=== PATIENT | male | born 1945 | race American Indian/Alaskan Native ===

== ENCOUNTER 2018-02-04 09:09 | Inpatient (IN) | payer MEDICARE ==
[2018-02-04 09:44] LABS: Basophils % (Auto) 0.3 % (0.0-1.8); Eosinophils # (Auto) 0.2 K/mm3 (0.0-0.4); Eosinophils % (Auto) 2.4 % (0.0-4.3); Hemoglobin 12.6 gm/dl (11.8-15.2); Lymphocytes # (Auto) 2.2 K/mm3 (1.2-5.4); Lymphocytes % (Auto) 21.8 % (13.4-35.0); Mean Corpuscular HGB Conc 33 % (32-34); Mean Corpuscular Hemoglobin 29 pg (28-32); Mean Corpuscular Volume 88 fl (84-94); Monocytes % (Auto) 9.9 % (0.0-7.3); Platelet Count 218 K/mm3 (140-440); Red Cell Distribution Width 14.2 % (13.2-15.2)
[2018-02-04 09:54] LABS: Albumin 3.8 g/dL (3.9-5); Calcium 9.5 mg/dL (8.4-10.2)
[2018-02-04 10:11] LABS: Bacteria,Urine 1+ /HPF (Negative); Bilirubin,Urine NEG (Negative); Blood,Urine NEG (Negative); Color,Urine Yellow (Yellow); Hyaline Casts,Urine 1 /LPF; Urobilinogen,Urine < 2.0 mg/dL (<2.0)
[2018-02-04] MEDS ORDERED: NORCO 5/325 PO ONE (11:44)
[2018-02-04] MEDS ORDERED: ZOFRAN ODT PO ONE (11:44)
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
--- NOTE | 2018-02-04 14:33 | Ultrasound Report ---
FINAL REPORT PROCEDURE: US ABDOMEN, complete TECHNIQUE: Real-time sonography in multiple planes of the abdomen was performed with image documentation. HISTORY: ruq, epigastric pain COMPARISON: No prior studies are available for comparison. FINDINGS: Liver: There is underlying increased echogenicity, compatible with fatty infiltration. There is a solid mass in the right hepatic lobe which measures 9.2 x 7.5 x 7.9 centimeters. Gallbladder: Fluid filled. No gallstones, wall thickening, pericholecystic fluid, or sonographic Berrios's sign. Intrahepatic bile ducts: Normal caliber . Extrahepatic bile ducts: Common bile duct measures 3 millimeters in caliber. Pancreas: Nonspecific increased echogenicity. Aorta: Visualized portions appear normal. IVC: Visualized portions appear normal. RIGHT kidney: Normal echotexture. No hydronephrosis. No focal lesions. Length: 12.4cm. LEFT kidney: Normal echotexture. There are 2 simple appearing cysts in the left kidney, measuring up to 5.8 centimeters. No hydronephrosis. Length: 15.1cm. Spleen: Normal size and echotexture. No focal lesions. Intraperitoneal fluid: None . Other: None . IMPRESSION: Solid mass in the right hepatic lobe, measuring up to 9.2 centimeters. Recommend follow-up/further evaluation to exclude malignancy. Findings were discussed by telephone with Dr. Waddell at 1:25 p.m. central standard time on 02/04/2018
--- NOTE | 2018-02-04 14:58 | History and Physical Report ---
History of Present Illness Chief complaint: Abdominal pain History of present illness: 72 YO Male with DM, HTN, CKD presents to ED for evaluation. Pt states that he has experienced abdominal pain for epast 5 days with worsening symptoms over the same time frame. Pt states that pain is 5-8/10, intermittent, sharp, worse with movement and palpation, radiates all over his abdomen. Pt denies fever, chills, CP, Palpitations, NVD, BRBPR, Melena, Hemoptysis, Unintentional weight loss, night sweats, productive cough, skin rash, or recent ill contacts. Pt seen and evaluated in ED and found to have a liver mass on Ultrasound. CT abdomen ordered but not completed due to patient creatnine of 1.5. Pt admitted to medical floor. Past History Past Medical History: diabetes, hypertension, renal failure Past Surgical History: bowel surgery Social history: , lives with family. denies: smoking, alcohol abuse, prescription drug abuse Family history: diabetes, hypertension Medications and Allergies Allergies Allergy/AdvReac Type Severity Reaction Status Date / Time lisinopril Allergy Swelling Verified 02/04/18 09:16 Home Medications Medication Instructions Recorded Confirmed Last Taken Type Allopurinol [Zyloprim] 300 mg PO QDAY 02/04/18 02/04/18 02/04/18 History Cholecalciferol (Vitamin D3) 2,000 unit PO QDAY 02/04/18 02/04/18 02/04/18 History [Vitamin D3 2,000 unit] Furosemide [Lasix TAB] 40 mg PO QDAY 02/04/18 02/04/18 02/04/18 History Metformin HCl [Glucophage] 1,000 mg PO BID 02/04/18 02/04/18 02/04/18 History Metoprolol Tartrate 50 mg PO DAILY 02/04/18 02/04/18 02/04/18 History NIFEdipine [Nifedipine ER] 30 mg PO DAILY 02/04/18 02/04/18 02/04/18 History hydrALAZINE [Apresoline TAB] 100 mg PO BID 02/04/18 02/04/18 02/04/18 History Review of Systems Constitutional: no weight loss, no chills Ears, nose, mouth and throat: no ear pain, no ear discharge, no tinnitis, no decreased hearing, no nose pain Cardiovascular: no chest pain, no orthopnea, no palpitations, no rapid/ irregular heart beat, no edema Respiratory: no cough, no cough with sputum, no excessive sputum, no hemoptysis Gastrointestinal: abdominal pain, no nausea, no vomiting, no diarrhea, no constipation, no BRBPR, no melena, no hematochezia Genitourinary Male: no dysuria, no hematuria, no flank pain, no discharge, no urinary frequency, no urinary hesitancy Rectal: no pain, no incontinence, no bleeding Musculoskeletal: no neck stiffness, no neck pain, no shooting arm pain, no arm numbness/tingling, no low back pain, no shooting leg pain, no leg numbness/ tingling Integumentary: no rash, no pruritis, no redness, no sores, no wounds, no boils Neurological: no transient paralysis, no paralysis, no weakness, no parathesias , no numbness, no tingling, no seizures, no syncope, no tremors Psychiatric: no anxiety, no memory loss, no change in sleep habits, no sleep disturbances, no hypersomnia, no change in appetite Endocrine: no cold intolerance, no heat intolerance, no polyphagia, no excessive thirst, no polydipsia, no polyuria, no nocturia, no excessive sweating , no flushing Hematologic/Lymphatic: no easy bruising, no easy bleeding, no lymphadenopathy Allergic/Immunologic: no urticaria, no allergic rhinitis, no wheezing, no persistent infections, no anaphylaxis Exam - Constitutional Vitals: Temp Pulse Resp BP Pulse Ox 98 F 64 18 139/80 94 02/04/18 11:37 02/04/18 11:37 02/04/18 11:37 02/04/18 14:00 02/04/18 14:08 General appearance: Present: obese - EENT Eyes: Present: PERRL ENT: hearing intact, clear oral mucosa - Neck Neck: Present: supple, normal ROM - Respiratory Respiratory effort: normal Respiratory: bilateral: CTA - Cardiovascular Heart Sounds: Present: S1 & S2. Absent: rub, click - Extremities Extremities: pulses symmetrical, No edema Peripheral Pulses: within normal limits - Abdominal General gastrointestinal: Present: soft, non-tender, non-distended, normal bowel sounds Male genitourinary: Present: normal - Integumentary Integumentary: Present: clear, warm, dry - Musculoskeletal Musculoskeletal: gait normal, strength equal bilaterally - Psychiatric Psychiatric: appropriate mood/affect, intact judgment & insight - Neurologic Neurologic: CNII-XII intact, moves all extremities Results - Labs CBC & Chem 7: 02/04/18 09:26 02/04/18 09:26 Labs: Abnormal lab results 02/04/18 02/04/18 Range/Units 09:26 09:26 [place] % (Auto) 9.9 H (0.0-7.3) % [place] # 1.0 H (0.0-0.8) K/mm3 Sodium 136 L (137-145) mmol/L Chloride 94.0 L (98-107) mmol/L Glucose 181 H (75-100) mg/dL Albumin 3.8 L (3.9-5) g/dL Assessment and Plan - Patient Problems (1) Liver mass Current Visit: Yes Status: Acute Plan to address problem: Serial abdominal exam, Ultrasound abdomen due to serum creatnine of 1.5 and CKD , Pending MR of the abdomen. Pain control (2) HTN (hypertension) Current Visit: Yes Status: Acute Qualifiers: Hypertension type: essential hypertension Qualified Code(s): I10 - Essential (primary) hypertension Plan to address problem: monitor bp q shift, resume prehospital medication, (3) Diabetes Current Visit: Yes Status: Acute Plan to address problem: Consistent carbohydrate diet, insulin, accu check (4) Renal insufficiency Current Visit: Yes Status: Acute Plan to address problem: IVF resuscitation, monitor uop q shift, avoid nephrotoxic agents (5) DVT prophylaxis Current Visit: Yes Status: Acute
[2018-02-04] MEDS ORDERED: ZOFRAN IV PRN (15:00)
[2018-02-04] MEDS ORDERED: TYLENOL PO PRN (15:00)
[2018-02-04] MEDS ORDERED: SODIUM CHLORIDE FLUSH SYRINGE 10 ML IV PRN (15:00)
[2018-02-04] MEDS: SODIUM CHLORIDE FLUSH SYRINGE 10 ML IV SCH (22:27)
[2018-02-05] MEDS: SODIUM CHLORIDE FLUSH SYRINGE 10 ML IV SCH ×2 (10:00→22:39)
--- NOTE | 2018-02-05 13:46 | Progress Note ---
Assessment and Plan Assessment and plan: Liver mass seen on Ultrasound Abdomen. MRI ordered , but patient cannot fit in machine because of body habitus. Consult Oncology Diabetes mellitus type 2. Fingerstick q ac and hs. Resume Metformin Hypertension. Resume Metoprolol, Hydralazine and Nifedipinele on Coreg. Will moniyor DVT prophylaxis. SCDs only. No anticoagulation because liver mass that may bleed. Full code status History Interval history: Pain right upper abdomen, no fever Hospitalist Physical - Physical exam Narrative exam: General:Not in acute distress, lying in bed, morbidly obese HEENT:Normocephalic, atraumatic Neck:supple,no JVD Lungs:Clear to auscultation, no rales , no wheeze Heart:S1 and S2 regular, no murmurs, rubs or gallop Abd: soft, Tender RUQ, no rebound tenderness, non distended, normal bowel sounds Ext:no edema, no clubbing or cyanosis Neuro:Awake,alert,oriented x 3, moves all extremities, Psych:normal mood - Constitutional Vitals: Temp Pulse Resp BP Pulse Ox 98.2 F 64 22 164/88 91 02/05/18 11:50 02/05/18 11:50 02/05/18 11:50 02/05/18 11:50 02/05/18 11:50 Results - Labs CBC & Chem 7: 02/04/18 09:26 02/04/18 09:26 Labs: Laboratory Last Values WBC 10.1 K/mm3 (4.5-11.0) 02/04/18 09:26 RBC 4.30 M/mm3 (3.65-5.03) 02/04/18 09:26 Hgb 12.6 gm/dl (11.8-15.2) 02/04/18 09:26 Hct 38.0 % (35.5-45.6) 02/04/18 09:26 MCV 88 fl (84-94) 02/04/18 09:26 MCH 29 pg (28-32) 02/04/18 09:26 MCHC 33 % (32-34) 02/04/18 09:26 RDW 14.2 % (13.2-15.2) 02/04/18 09:26 Plt Count 218 K/mm3 (140-440) 02/04/18 09:26 Lymph % (Auto) 21.8 % (13.4-35.0) 02/04/18 09:26 [place] % (Auto) 9.9 % (0.0-7.3) H 02/04/18 09:26 Eos % (Auto) 2.4 % (0.0-4.3) 02/04/18 09:26 Baso % (Auto) 0.3 % (0.0-1.8) 02/04/18 09:26 Lymph # 2.2 K/mm3 (1.2-5.4) 02/04/18 09:26 [place] # 1.0 K/mm3 (0.0-0.8) H 02/04/18 09:26 Eos # 0.2 K/mm3 (0.0-0.4) 02/04/18 09: Baso # 0.0 K/mm3 (0.0-0.1) 02/04/18 09:26 Seg Neutrophils % 65.6 % (40.0-70.0) 02/04/18 09:26 Seg Neutrophils # 6.6 K/mm3 (1.8-7.7) 02/04/18 09:26 Sodium 136 mmol/L (137-145) L 02/04/18 09:26 Potassium 4.4 mmol/L (3.6-5.0) 02/04/18 09:26 Chloride 94.0 mmol/L (98-107) L 02/04/18 09:26 Carbon Dioxide 27 mmol/L (22-30) 02/04/18 09:26 Anion Gap 19 mmol/L 02/04/18 09:26 BUN 19 mg/dL (9-20) 02/04/18 09:26 Creatinine 1.5 mg/dL (0.8-1.5) 02/04/18 09:26 Estimated GFR 56 ml/min 02/04/18 09:26 BUN/Creatinine Ratio 13 % 02/04/18 09:26 Glucose 181 mg/dL (75-100) H 02/04/18 09:26 POC Glucose 157 (70-105) H 02/05/18 11:56 Calcium 9.5 mg/dL (8.4-10.2) 02/04/18 09:26 Total Bilirubin 0.40 mg/dL (0.1-1.2) 04/25/18 09:26 AST 39 units/L (5-40) 02/04/18 09:26 ALT 47 units/L (7-56) 02/04/18 09:26 Alkaline Phosphatase 101 units/L (35-129) 02/04/18 09:26 Total Protein 7.1 g/dL (6.3-8.2) 02/04/18 09:26 Albumin 3.8 g/dL (3.9-5) L 02/04/18 09:26 Albumin/Globulin Ratio 1.2 % 02/04/18 09:26 Lipase 33 units/L (13-60) 02/04/18 09:26 Urine Color Yellow (Yellow) 02/04/18 Unknown Urine Turbidity Clear (Clear) 02/04/18 Unknown Urine pH 5.0 (5.0-7.0) 02/04/18 Unknown Ur Specific [place] 1.019 (1.003-1.030) 02/04/18 Unknown Urine Protein 100 mg/dl mg/dL (Negative) 02/04/18 Unknown Urine Glucose (UA) 50 mg/dL (Negative) 02/04/18 Unknown Urine Ketones Neg mg/dL (Negative) 02/04/18 Unknown Urine Blood Neg (Negative) 02/04/18 Unknown Urine Nitrite Neg (Negative) 02/04/18 Unknown Urine Bilirubin Neg (Negative) 02/04/18 Unknown Urine Urobilinogen < 2.0 mg/dL (<2.0) 02/04/18 Unknown Ur Leukocyte Esterase Neg (Negative) 02/04/18 Unknown Urine WBC (Auto) 1.0 /HPF (0.0-6.0) 02/04/18 Unknown Urine RBC (Auto) 3.0 /HPF (0.0-6.0) 02/04/18 Unknown U Epithel Cells (Auto) < 1.0 /HPF (0-13.0) 02/04/18 Unknown Urine Bacteria (Auto) 1+ /HPF (Negative) 02/04/18 Unknown Hyaline Casts 1 /LPF 02/04/18 Unknown
[2018-02-05] MEDS ORDERED: NACL 0.9% 1000 ML 1,000 ML IV SCH (17:00)
--- NOTE | 2018-02-05 19:21 | Consultation ---
History of Present Illness - Reason for Consult Consult date: 02/05/18 Liver mass lesion. Requesting physician: JESUS HANNAH - History of Present Illness Thank you for this consult, patient seen, records reviewed, Kindly asked to see for the reason above..As per his account , no previous hx of this lesion.no contributing factors.MRI unable due to body mass.Please see orders/ for w/up, and recommendations. Past History Past Medical History: diabetes, hypertension, renal failure Past Surgical History: bowel surgery Social history: , lives with family. denies: smoking, alcohol abuse, prescription drug abuse Family history: diabetes, hypertension Medications and Allergies Allergies Allergy/AdvReac Type Severity Reaction Status Date / Time lisinopril Allergy Swelling Verified 02/04/18 09:16 Home Medications Medication Instructions Recorded Confirmed Last Taken Type Allopurinol [Zyloprim] 300 mg PO QDAY 02/04/18 02/04/18 02/04/18 History Cholecalciferol (Vitamin D3) 2,000 unit PO QDAY 02/04/18 02/04/18 02/04/18 History [Vitamin D3 2,000 unit] Furosemide [Lasix TAB] 40 mg PO QDAY 02/04/18 02/04/18 02/04/18 History Metformin HCl [Glucophage] 1,000 mg PO BID 02/04/18 02/04/18 02/04/18 History Metoprolol Tartrate 50 mg PO DAILY 02/04/18 02/04/18 02/04/18 History NIFEdipine [Nifedipine ER] 30 mg PO DAILY 02/04/18 02/04/18 02/04/18 History hydrALAZINE [Apresoline TAB] 100 mg PO BID 02/04/18 02/04/18 02/04/18 History Active Meds: Active Medications Acetaminophen (Tylenol) 650 mg PO Q4H PRN PRN Reason: Pain MILD(1-3)/Fever >100.5/SPENCE Sodium Chloride (Nacl 0.9% 1000 Ml) 1,000 mls @ 75 mls/hr IV DIRECT LAKISHA Ondansetron HCl (Zofran) 4 mg IV Q8H PRN PRN Reason: Nausea And Vomiting Sodium Chloride (Sodium Chloride Flush Syringe 10 Ml) 10 ml IV BID LAKISHA Last Admin: 02/05/18 10:00 Dose: 10 ml Sodium Chloride (Sodium Chloride Flush Syringe 10 Ml) 10 ml IV PRN PRN PRN Reason: LINE FLUSH Exam - Constitutional Vitals: Temp Pulse Resp BP Pulse Ox 98.2 F 61 22 164/88 94 02/05/18 11:50 02/05/18 16:42 02/05/18 11:50 02/05/18 11:50 02/05/18 16:42 General appearance: Present: no acute distress, well-nourished - EENT Eyes: Present: PERRL ENT: hearing intact, clear oral mucosa - Neck Neck: Present: supple, normal ROM - Respiratory Respiratory effort: normal Respiratory: bilateral: CTA - Cardiovascular Heart Sounds: Present: S1 & S2. Absent: rub, click - Extremities Extremities: pulses symmetrical, No edema Peripheral Pulses: within normal limits - Abdominal General gastrointestinal: Present: soft, non-tender, non-distended, normal bowel sounds Male genitourinary: Present: deferred - Rectal Rectal Exam: deferred - Integumentary Integumentary: Present: clear, warm, dry - Musculoskeletal Musculoskeletal: gait normal, strength equal bilaterally - Psychiatric Psychiatric: appropriate mood/affect, intact judgment & insight - Neurologic Neurologic: CNII-XII intact, moves all extremities Results - Labs CBC & Chem 7: 02/04/18 09:26 02/04/18 09:26 Labs: Abnormal lab results 02/04/18 02/05/18 02/05/18 Range/Units 21:14 05:56 11:56 POC Glucose 170 H 187 H 157 H (70-105) 02/05/18 Range/Units 16:48 POC Glucose 124 H (70-105) Assessment and Plan - Patient Problems (1) Liver mass Current Visit: Yes Status: Acute Plan to address problem: see work up. (2) RUQ pain Current Visit: Yes Status: Acute Plan to address problem: due to mass effect. control pain.
[2018-02-05 21:20] LABS: INR 0.93 (0.87-1.13)
[2018-02-05 21:21] LABS: Partial Thromboplastin Time 35.1 Sec. (24.2-36.6)
[2018-02-05] MEDS ORDERED: NON-FORMULARY (Metformin Hcl [Glucophage] 1,000 MG) PO SCH (22:00)
[2018-02-05] MEDS: APRESOLINE PO SCH (22:40)
[2018-02-06] MEDS: GLUCOPHAGE PO SCH ×3 (09:12→18:05)
--- NOTE | 2018-02-06 10:29 | Progress Note ---
Hospitalist Physical - Constitutional Vitals: Temp Pulse Resp BP Pulse Ox 98.3 F 62 22 142/86 96 02/06/18 07:31 02/06/18 07:31 02/06/18 07:31 02/05/18 19:43 02/06/18 07:31 General appearance: Present: no acute distress, well-nourished Results - Labs CBC & Chem 7: 02/04/18 09:26 02/04/18 09:26 Labs: Laboratory Last Values WBC 10.1 K/mm3 (4.5-11.0) 02/04/18 09: RBC 4.30 M/mm3 (3.65-5.03) 02/04/18 09:26 Hgb 12.6 gm/dl (11.8-15.2) 02/04/18 09: Hct 38.0 % (35.5-45.6) 02/04/18 09:26 MCV 88 fl (84-94) 02/04/18 09: MCH 29 pg (28-32) 02/04/18 09: MCHC 33 % (32-34) 02/04/18 09:26 RDW 14.2 % (13.2-15.2) 02/04/18 09:26 Plt Count 218 K/mm3 (140-440) 02/04/18 09:26 Lymph % (Auto) 21.8 % (13.4-35.0) 02/04/18 09:26 [place] % (Auto) 9.9 % (0.0-7.3) H 02/04/18 09: Eos % (Auto) 2.4 % (0.0-4.3) 02/04/18 09:26 Baso % (Auto) 0.3 % (0.0-1.8) 02/04/18 09:26 Lymph # 2.2 K/mm3 (1.2-5.4) 02/04/18 09: [place] # 1.0 K/mm3 (0.0-0.8) H 02/04/18 09:26 Eos # 0.2 K/mm3 (0.0-0.4) 02/04/18 09:26 Baso # 0.0 K/mm3 (0.0-0.1) 02/04/18 09:26 Seg Neutrophils % 65.6 % (40.0-70.0) 02/04/18 09:26 Seg Neutrophils # 6.6 K/mm3 (1.8-7.7) 02/04/18 09:26 PT 12.9 Sec. (12.2-14.9) 02/05/18 20:20 INR 0.93 (0.87-1.13) 02/05/18 20:20 APTT 35.1 Sec. (24.2-36.6) 02/05/18 20:20 Sodium 136 mmol/L (137-145) L 02/04/18 09:26 Potassium 4.4 mmol/L (3.6-5.0) 02/04/18 09:26 Chloride 94.0 mmol/L (98-107) L 02/04/18 09:26 Carbon Dioxide 27 mmol/L (22-30) 02/04/18 09:26 Anion Gap 19 mmol/L 02/04/18 09:26 BUN 19 mg/dL (9-20) 02/04/18 09:26 Creatinine 1.5 mg/dL (0.8-1.5) 02/04/18 09:26 Estimated GFR 56 ml/min 02/04/18 09:26 BUN/Creatinine Ratio 13 % 02/04/18 09:26 Glucose 181 mg/dL (75-100) H 02/04/18 09:26 POC Glucose 196 (70-105) H 02/06/18 06:25 Calcium 9.5 mg/dL (8.4-10.2) 02/04/18 09:26 Total Bilirubin 0.40 mg/dL (0.1-1.2) 02/04/18 09:26 AST 39 units/L (5-40) 02/04/18 09:26 ALT 47 units/L (7-56) 02/04/18 09:26 Alkaline Phosphatase 101 units/L (35-129) 02/04/18 09:26 Lactate Dehydrogenase 239 units/L (91-180) H 02/05/18 20:20 Total Protein 7.1 g/dL (6.3-8.2) 02/04/18 09:26 Albumin 3.9 g/dL (3.9-5) 02/05/18 20:20 Albumin/Globulin Ratio 1.2 % 02/04/18 09:26 Lipase 33 units/L (13-60) 02/04/18 09:26 Urine Color Yellow (Yellow) 02/04/18 Unknown Urine Turbidity Clear (Clear) 02/04/18 Unknown Urine pH 5.0 (5.0-7.0) 02/04/18 Unknown Ur Specific [place] 1.019 (1.003-1.030) 02/04/18 Unknown Urine Protein 100 mg/dl mg/dL (Negative) 02/04/18 Unknown Urine Glucose (UA) 50 mg/dL (Negative) 02/04/18 Unknown Urine Ketones Neg mg/dL (Negative) 02/04/18 Unknown Urine Blood Neg (Negative) 02/04/18 Unknown Urine Nitrite Neg (Negative) 02/04/18 Unknown Urine Bilirubin Neg (Negative) 02/04/18 Unknown Urine Urobilinogen < 2.0 mg/dL (<2.0) 02/04/18 Unknown Ur Leukocyte Esterase Neg (Negative) 02/04/18 Unknown Urine WBC (Auto) 1.0 /HPF (0.0-6.0) 02/04/18 Unknown Urine RBC (Auto) 3.0 /HPF (0.0-6.0) 02/04/18 Unknown U Epithel Cells (Auto) < 1.0 /HPF (0-13.0) 02/04/18 Unknown Urine Bacteria (Auto) 1+ /HPF (Negative) 02/04/18 Unknown Hyaline Casts 1 /LPF 02/04/18 Unknown Hepatitis C Antibody Non-reactive (NonReactive) 02/05/18 20:20
[2018-02-06 10:44] LABS: BUN/Creatinine Ratio 13; Blood Urea Nitrogen 17 mg/dL (9-20); Calcium 9.1 mg/dL (8.4-10.2); Hemolysis Index 2
[2018-02-06] MEDS: LOPRESSOR PO SCH (10:45)
[2018-02-06] MEDS: VITAMIN D3 PO SCH (10:45)
[2018-02-06] MEDS: LASIX PO SCH (10:46)
[2018-02-06] MEDS: ZYLOPRIM PO SCH (10:47)
[2018-02-06] MEDS: APRESOLINE PO SCH ×2 (10:47→22:51)
[2018-02-06] MEDS: PROCARDIA XL PO SCH (10:47)
[2018-02-06] MEDS: SODIUM CHLORIDE FLUSH SYRINGE 10 ML IV SCH ×2 (10:48→22:50)
--- NOTE | 2018-02-06 11:13 | Event Note ---
Date: 02/06/18 72 year old male with liver mass. Prior to any liver biopsy patient needs to have reevaluation of Creatinine to determine if contrast enhanced liver CT can be performed. If lower, recommend [address] scan. Patient unable to have MRI due to morbid obesity. Patient needs full hepatitis panel and AFP to return prior to any liver biopsy to assess potential of malignancy. If potential high based on hepatitis panel and AFP, then usually liver biopsy avoided and would recommend open MRI with contrast which can usually define any primary hepatic malignant process without the chance of seeding. Biopsy can result in patient not being transplantable due to the fear of seeding at many transplant organizations (including [facility]). Given decline in creatinine, recommend 3 phase liver biopsy and then can proceede with further recommendations based on results.
[2018-02-06] MEDS: MOTRIN PO PRN ×2 (15:14→22:50)
--- NOTE | 2018-02-06 15:42 | Discharge Summary ---
Providers - Providers Date of Admission: 02/04/18 15:00 Date of discharge: 02/06/18 Attending physician: JANICE REDMOND 02/05/18 15:00 Consult to Physician [CONS] Routine Comment: Consulting Provider: JAI HAYES Physician Instructions: Reason For Exam: Liver mass 02/05/18 19:41 Consult to Physician [CONS] Routine Comment: Consulting Provider: ABDIRAHMAN LANGE Physician Instructions: US guided liver biopsy for diagnostic purposes. Reason For Exam: liver mass lesion. Primary care physician: ASHISH NEGRON Hospitalization Condition: Fair Disposition: DC-01 TO HOME OR SELFCARE Exam - Constitutional Vitals: Temp Pulse Resp BP Pulse Ox 98.3 F 65 22 170/76 94 02/06/18 11:44 02/06/18 11:44 02/06/18 11:44 02/06/18 11:44 02/06/18 11:44 Plan Activity: advance as tolerated Diet: regular, low fat, low cholesterol Additional Instructions: 1.Follow up with PCP in 1 week. 2.To do outpatient liver biopsy on Friday02/09/18. 3.Follow up with Dr. Hayes in 3-5 days Prescriptions: Colchicine [Colcrys] 0.6 mg PO BID #10 tab
--- NOTE | 2018-02-06 20:27 | Progress Note ---
Assessment and Plan - Patient Problems (1) Liver mass Current Visit: Yes Status: Acute Plan to address problem: see work up. see notes. (2) RUQ pain Current Visit: Yes Status: Acute Plan to address problem: due to mass effect. control pain. see notes. Subjective Date of service: 02/06/18 Interval history: Patient seen/examined, resting in bed, labs/records/notes reviewed, case d/w patient. I have also discussed rec/plan with patient, and the staff, Patient to have CT of the ABD/pelvics to day,or tomorrow, then go home as he wishes, and come back out patient on friday for the liver tissue bx , and follow up in the clinic 3-5 days following that to review path report.I have given him my card. Objective - Constitutional Vitals: Vital Signs - 12hr 02/06/18 02/06/18 11:44 15:53 Temperature 98.3 F 98.3 F Pulse Rate 65 70 Respiratory 22 22 Rate Blood Pressure 170/76 137/61 O2 Sat by Pulse 94 93 Oximetry General appearance: Present: no acute distress, well-nourished - EENT Eyes: PERRL, EOM intact ENT: hearing intact, clear oral mucosa Ears: bilateral: normal - Neck Neck: supple, normal ROM - Respiratory Respiratory effort: normal Respiratory: bilateral: CTA - Breasts Breasts: deferred - Cardiovascular Rhythm: regular Heart Sounds: Present: S1 & S2. Absent: gallop, rub Extremities: pulses intact, No edema, normal color, Full ROM - Gastrointestinal General gastrointestinal: Present: soft, non-tender, non-distended, normal bowel sounds Rectal Exam: deferred - Genitourinary Male genitourinary: deferred - Integumentary Integumentary: clear, warm, dry - Musculoskeletal Musculoskeletal: 1, strength equal bilaterally - Neurologic Neurologic: moves all extremities - Psychiatric Psychiatric: memory intact, appropriate mood/affect, intact judgment & insight - Labs CBC & Chem 7: 02/04/18 09:26 02/06/18 10:02 Labs: Abnormal lab results 02/05/18 02/05/18 02/06/18 Range/Units 20:20 21:55 06:25 Glucose (75-100) mg/dL POC Glucose 214 H 196 H (70-105) Lactate Dehydrogenase 239 H (91-180) units/L 02/06/18 02/06/18 02/06/18 Range/Units 10:02 11:54 15:59 Glucose 175 H (75-100) mg/dL POC Glucose 280 H 265 H (70-105) Lactate Dehydrogenase (91-180) units/L
[2018-02-07] MEDS ORDERED: NACL ONE (07:28)
[2018-02-07 09:19] VITALS: BP 146/82
[2018-02-07] MEDS: VITAMIN D3 PO SCH (10:17)
[2018-02-07] MEDS: APRESOLINE PO SCH (10:17)
[2018-02-07] MEDS: PROCARDIA XL PO SCH (10:18)
[2018-02-07] MEDS: LASIX PO SCH (10:18)
[2018-02-07] MEDS: ZYLOPRIM PO SCH (10:18)
[2018-02-07] MEDS: SODIUM CHLORIDE FLUSH SYRINGE 10 ML IV SCH (10:19)
[2018-02-07] MEDS: GLUCOPHAGE PO SCH (10:40)
[2018-02-07] MEDS: LOPRESSOR PO SCH (10:41)
--- NOTE | 2018-02-07 10:43 | Cat Scan Report ---
FINAL REPORT EXAM: CT ABDOMEN PELVIS W CON HISTORY: LIVER MASS COMPARISON: Ultrasound of the abdomen performed on 02/04/2018 TECHNIQUE: Multiple contiguous axial images were obtained from the lung bases to the pubic symphysis before and after administration of IV contrast. Delayed imaging was also performed. Evaluation is limited as the patient's IV catheter became infiltrated. FINDINGS: Lung bases: Normal. Visualized heart and mediastinum: Normal. Liver: 8 x 8.1 x 9.5 centimeter mass in segment 4 B. Enhancement characteristics cannot be obtained due to infiltration of the patient's IV. The mass distorts hepatic architecture and demonstrates internal heterogeneity. Spleen: Normal. Pancreas: Normal. Gallbladder and Biliary Tree: No calcified gallstones. No biliary ductal dilatation. Adrenal glands: Normal. Kidneys: 5.7 centimeter simple appearing cyst in the inferior pole of the left kidney. Exophytic intermediate density lesion of the superior pole of the left kidney measuring up to 2.1 centimeters, incompletely characterized but may represent a hemorrhagic cyst. Simple appearing cyst in the superior pole of the left kidney measuring up to 2.8 centimeters. Normal appearance of the right kidney. No hydronephrosis. Bladder: Normal. Pelvic organs: Mild enlargement of the prostate gland with mass effect at the bladder base. Bowel: No focal wall thickening. No evidence of obstruction. The appendix is not clearly identified, but there are no pericecal inflammatory changes. Peritoneum: No significant mesenteric adenopathy. No free air or free fluid. Vasculature: Abdominal aorta is normal in caliber without evidence of aneurysm. Scattered atherosclerotic calcifications. Normal noncontrast appearance of the portal venous system and the inferior vena cava. Bones and soft tissues: No suspicious osseous lesions. No acute fracture or dislocation. Severe degenerative changes of the lumbar spine at L3-L4 and L5-S1. Small, fat containing periumbilical hernia. IMPRESSION: 1. 8 x 8.1 x 9.5 centimeter mass segment 4B of the liver. Enhancement characteristics cannot be obtained due to infiltration of the patient's IV. Recommend repeat CT liver protocol versus MRI liver protocol. Suspicion remains high for malignancy. 2. 2.1 centimeter exophytic, intermediate density lesion of the superior pole of the left kidney, incompletely characterized, but may represent a hemorrhagic cyst. Recommend further evaluation at the time of CT or MRI liver protocol. 3. Additional simple appearing cysts within the left kidney.
[2018-02-07] MEDS: MOTRIN PO PRN (11:04)
--- NOTE | 2018-02-07 12:05 | Event Note ---
Date: 02/07/18 Patient stable to dc home
--- NOTE | 2018-02-07 12:23 | Progress Note ---
Assessment and Plan - Patient Problems (1) Liver mass Current Visit: Yes Status: Acute Plan to address problem: see work up. see notes. (2) RUQ pain Current Visit: Yes Status: Acute Plan to address problem: due to mass effect. control pain. see notes. Subjective Date of service: 02/07/18 Interval history: Patient seen/examined, resting in bed, labs/records/notes reviewed, case d/w patient. I have also discussed rec/plan with patient, and the staff, Patient to have CT of the ABD/pelvics to day,or tomorrow, then go home as he wishes, and come back out patient on friday for the liver tissue bx , and follow up in the clinic 3-5 days following that to review path report.I have given him my card. Patient resting in bed, NAD, CT of the abd/pelvics completed, and reviewed, There is a questionable lesion in the kidney,?cyst vs vs,. MRI? CT kidneyliver protocol rec ,and will be out patient.Liver bx to be done also on friday, for definitive dx. Objective - Constitutional Vitals: Vital Signs - 12hr 02/07/18 02/07/18 02/07/18 09:13 10:41 10:47 Temperature 97.9 F Pulse Rate 70 70 Pulse Rate [ 70 Apical] Respiratory 18 Rate Blood Pressure 146/82 146/82 O2 Sat by Pulse 93 Oximetry 02/07/18 11:04 Temperature Pulse Rate Pulse Rate [ Apical] Respiratory 20 Rate Blood Pressure O2 Sat by Pulse Oximetry General appearance: Present: no acute distress, well-nourished - EENT Eyes: PERRL, EOM intact ENT: hearing intact, clear oral mucosa Ears: bilateral: normal - Neck Neck: supple, normal ROM - Respiratory Respiratory effort: normal Respiratory: bilateral: CTA - Breasts Breasts: deferred - Cardiovascular Rhythm: regular Heart Sounds: Present: S1 & S2. Absent: gallop, rub Extremities: pulses intact, No edema, normal color, Full ROM - Gastrointestinal General gastrointestinal: Present: soft, non-tender, non-distended, normal bowel sounds Rectal Exam: deferred - Genitourinary Male genitourinary: deferred - Integumentary Integumentary: clear, warm, dry - Musculoskeletal Musculoskeletal: 1, strength equal bilaterally - Neurologic Neurologic: moves all extremities - Psychiatric Psychiatric: memory intact, appropriate mood/affect, intact judgment & insight - Labs CBC & Chem 7: 02/04/18 09:26 02/06/18 10:02 Labs: Abnormal lab results 02/06/18 02/06/18 02/06/18 Range/Units 11:54 15:59 22:07 POC Glucose 280 H 265 H 243 H (70-105) 02/07/18 02/07/18 Range/Units 06:14 11:31 POC Glucose 198 H 278 H (70-105)
== END 2018-02-07 14:00 | disposition home or self-care (01) | DRG 442 ==
LOC: ED 09:09 → 3A 15:00
PROVIDERS: ADMIT Internal Medicine; ATTEND Internal Medicine
DX: R16.0 Hepatomegaly, not elsewhere classified (principal); N17.9 Acute kidney failure, unspecified; Z68.41 Body mass index [BMI] 40.0-44.9, adult; N18.9 Chronic kidney disease, unspecified; E11.22 Type 2 diabetes mellitus with diabetic chronic kidney disease; I12.9 Hypertensive chronic kidney disease with stage 1 through stage 4 chronic kidney disease, or unspecified chronic kidney disease; E66.01 Morbid (severe) obesity due to excess calories
CPT/HCPCS: 36415; 74177; 76700; 80048; 80053; 81001; 82040; 82103; 82106; 82962; 83615; 83690; 85025; 85610; 85730; 86705; 86803; J7030; Q0162; Q9967

== ENCOUNTER 2018-02-09 06:36 | Day surgery (SDC) | payer MEDICARE ==
[2018-02-09 07:34] VITALS: BP 139/69
--- NOTE | 2018-02-09 11:30 | Short Stay Summary ---
Short Stay Documentation Date of service: 02/09/18 - History Principal diagnosis: Liver mass Social history: no significant social history - Allergies and Medications Current Medications: Allergies lisinopril Allergy (Verified 02/04/18 09:16) Swelling Home Medications Medication Instructions Recorded Confirmed Last Taken Type Allopurinol [Zyloprim] 300 mg PO QDAY 02/04/18 02/09/18 02/08/18 History Cholecalciferol (Vitamin D3) 2,000 unit PO QDAY 02/04/18 02/09/18 02/08/18 History [Vitamin D3 2,000 unit] Furosemide [Lasix TAB] 40 mg PO QDAY PRN 02/04/18 02/09/18 02/08/18 History Metformin HCl [Glucophage] 1,000 mg PO BID 02/04/18 02/09/18 02/08/18 History Metoprolol Tartrate 50 mg PO DAILY 02/04/18 02/09/18 02/08/18 History NIFEdipine [Nifedipine ER] 30 mg PO DAILY 02/04/18 02/09/18 02/08/18 History hydrALAZINE [Apresoline TAB] 100 mg PO BID 02/04/18 02/09/18 02/08/18 History Colchicine [Colcrys] 0.6 mg PO BID PRN 02/09/18 02/09/18 02/08/18 History - Physical exam General appearance: no acute distress, obese HEENT: Atraumatic Lungs: Normal air movement Breasts: deferred Heart: Regular rate Gastrointestinal: normal Male Genitourinary: deferred Female Genitourinary: deferred - Brief post op/procedure progress note Date of procedure: 02/09/18 Pre-op diagnosis: liver mass Post-op diagnosis: same Procedure: No procedure preformed Anesthesia: local Surgeon: ABDIRAHMAN LANGE Estimated blood loss: none Pathology: none Condition: stable - Disposition Condition at discharge: Good Disposition: DC-01 TO HOME OR SELFCARE Short Stay Discharge Plan Activity: advance as tolerated Weight Bearing Status: Weight Bear as Tolerated Diet: regular Follow up with: ASHISH NEGRON JR, MD [Primary Care Provider] - 7 Days
--- NOTE | 2018-02-09 11:46 | Event Note ---
Date: 02/09/18 The patient was sent to the hospital for possible biopsy of a hepatic mass. This mass was incidentally discovered on an abdominal ultrasound for abdominal pain. A CT performed over the weekend was inadequate secondary to contrast infiltration. A triple phase CT was ordered today and again, the arterial phase was missed. 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 The patient will benefit from further evaluation with a nuclear medicine tagged red blood cell scan to document this. Given that he has had abdominal pain requiring visits to the emergency room, the patient would also likely benefit from referral to a hepatic surgeon
--- NOTE | 2018-02-09 12:12 | Cat Scan Report ---
CT ABDOMEN PELVIS WITH CONTRAST: HISTORY: abdominal pain. COMPARISON: none. TECHNIQUE: Helical CT in 1.25mm intervals following IV contrast. Triple phase liver CT. Sagittal and coronal reconstructions. FINDINGS: Lung bases: Adequately aerated. Normal heart size. Liver: The liver is normal size and attenuation. There is a heterogeneous rounded mass in the anterior left hepatic lobe measuring up to 9.4 cm in diameter. Timing of the contrast bolus on this examination is suboptimal. The arterial phase was taken too early and is essentially a noncontrast study. There is suggestion of mild peripheral nodular enhancement of this lesion on the delayed images. This may represent a giant liver hemangioma. Other etiologies such as FNH is difficult to exclude. Consider further evaluation with MRI with postcontrast dynamic imaging of the liver or nuclear medicine liver scan hemangioma protocol is needed. The remainder of the liver is unremarkable. No underlying parenchymal liver disease is appreciated. Biliary system: Tiny gallstones are suspected. No biliary dilatation. Pancreas: Normal. Spleen: Normal. Kidneys/ureters/bladder: The right kidney and collecting system are unremarkable. A 5.3 cm simple cyst is noted in the posterior left kidney. A 2.2 cm cyst is identified in the superior left kidney. There are 2 intermediate density well rounded lesions in the anterior left kidney measuring 5.9 cm and 2.2 cm. These appear to represent hemorrhagic cysts. The bladder is unremarkable. The prostate gland is normal size. Adrenal glands: Normal. Aorta: Normal. Intestines: Unremarkable given no oral contrast was administered. Appendix: Normal. Pelvic viscera: Normal. Ascites: None. Adenopathy: None. Musculoskeletal: Moderate thoracolumbar spondylosis. No suspicious bony lesion or fracture. IMPRESSION: 9.4 cm complex, heterogeneous lesion in the anterior left hepatic lobe as outlined above. The etiology of this lesion remains unclear although I favor a giant hemangioma. Please see above. Cholelithiasis. Multiple left renal cysts as described. Thoracolumbar spondylosis.
== END 2018-02-09 12:20 | disposition home or self-care (01) ==
LOC: CATHLABREC 06:36 → EDSTATUS 02-17 08:30
PROVIDERS: ATTEND Radiology Diagnostic Radiology
DX: K76.9 Liver disease, unspecified (principal); K80.20 Calculus of gallbladder without cholecystitis without obstruction; M47.815 Spondylosis without myelopathy or radiculopathy, thoracolumbar region; N28.1 Cyst of kidney, acquired; Z88.8 Allergy status to other drugs, medicaments and biological substances; Z79.899 Other long term (current) drug therapy; Z53.8 Procedure and treatment not carried out for other reasons
CPT/HCPCS: 74177; 82962; Q9967